=== PATIENT | male | born 1955 | race Caucasian/White ===

== ENCOUNTER 2019-03-20 06:32 | Inpatient (IN) | payer BC ==
[~2019-03-20] VITALS: Ht 183 cm; Wt 96.2 kg
[2019-03-20] VITALS (15 sets, daily range): BP systolic 103–185; BP diastolic 64–124
--- NOTE | ~2019-03-20 | EKG ---
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
--- NOTE | ~2019-03-20 | PR ---
[place], [place] PROGRESS NOTE NAME: LORRAINECAL Root UNIT #: [id number] ROOM: 402 DOCTOR: MARY ANN ACOSTA MD BIRTHDATE: [birth year] DOS: 03/23/2019 SUBJECTIVE: The patient had seen for Dr. Odom 3 days ago. The patient admitted with rapid atrial fibrillation. The patient went back into sinus rhythm, now he is reverted back to atrial fibrillation. He was started on amiodarone, which was discontinued by Dr. Odom. The patient is still on the Cardizem drip at 10 mcg at this point. Echocardiogram official report is still pending, but initial report shows EF is about 20-25%, history of alcohol abuse. He denies any chest discomfort, not in congestive heart failure. REVIEW OF SYSTEMS: A 6-8 systems reviewed. The patient denies any chest discomfort, no shortness of breath right now at rest. No palpitations. No GI or issues. Neurologically stable. PHYSICAL EXAMINATION: GENERAL: He is alert, oriented x 3. HEENT: Unremarkable. NECK: Supple, no JVD. LUNGS: Diminished breath sounds. HEART: Sounds are irregularly irregular. ABDOMEN: Soft, nontender. EXTREMITIES: Intact pulses. LABORATORY DATA: Sodium 141, potassium 4, creatinine is 1.02. Hemoglobin ____, hematocrit within normal limits. IMPRESSION AND PLAN: The patient with new onset atrial fibrillation, cardiomyopathy, hypertension, alcohol abuse, and nicotine dependence. RECOMMENDATION: Continue the present medications as ordered. The patient is already on anticoagulation. Because of the LV dysfunction and persistent AFib, the patient has been digitalized. I will review the digoxin level. If he continues to be in atrial fibrillation, we need to do either a stress test or a heart catheterization followed by CARIDAD cardioversion if he does not convert into sinus rhythm and we will follow up. [place], [place] PROGRESS NOTE NAME: CAL PETERS UNIT #: [id number] ROOM: 402 DOCTOR: MARY ANN ACOSTA MD BIRTHDATE: [birth year] MARY ANN ACOSTA MD CM:PNTRANS [id number] MARY ANN ACOSTA MD 03/23/19 0054 interface
--- NOTE | ~2019-03-20 | EKG ---
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
--- NOTE | ~2019-03-20 | EKG ---
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
--- NOTE | ~2019-03-20 | EKG ---
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
--- NOTE | ~2019-03-20 | EKG ---
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
--- NOTE | ~2019-03-20 | CON ---
[place], [place] REPORT OF CONSULTATION NAME: CAL PETERS [facility] #: [id number] UNIT #: [id number] ROOM: 402 DOCTOR: JONATHAN ACOSTA MDHISH BIRTHDATE: [birth year] DOS: 03/20/2019 I am covering for Dr. Odom. 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 The patient was recently admitted to [facility] for suspected pneumonia and the patient was discharged with lisinopril. The patient was severely hypertensive, was also started on doxycycline. The patient came in with palpitations, was found to be in rapid atrial fibrillation of 150 and we were consulted. When I saw him, he was not having any chest pain, but heart rate is like 140s-150s with atrial fibrillation, on 15 mg of Cardizem. The patient is somewhat a poor historian, has never seen anybody in the past. He does not go to the doctors. PAST MEDICAL HISTORY: Recently diagnosed hypertension. PAST SURGICAL HISTORY: Arthroscopy surgery to the knee. PAST SOCIAL HISTORY: Alcohol abuse, 8 shots of liquor per day since age 25. Does not use any drugs. Nicotine dependence with current use 1 pack per. FAMILY HISTORY: Not remarkable. ALLERGIES: None. HOME MEDICATIONS: Lisinopril 20 mg. REVIEW OF SYSTEMS: CONSTITUTIONAL: No fever, no chills. HEENT: No visual disturbance or hearing problems. CARDIOVASCULAR SYSTEM: As per HPI. Complains of palpitation. RESPIRATORY SYSTEM: Complains of shortness of breath. GASTROINTESTINAL: Reports diarrhea, denies abdominal pain now, complains of distention. PSYCHIATRIC: Reports substance abuse, 8 shots of alcohol per day. PHYSICAL EXAMINATION: VITAL SIGNS: He is in atrial fibrillation, rate is about 120s-140s, on 15 mg of Cardizem IV, blood pressure is 106/90. HEENT: Unremarkable. NECK: Supple, no JVD. LUNGS: Diminished breath sounds. HEART: Sounds are irregularly irregular. ABDOMEN: Soft, positive bowel sounds. EXTREMITIES: Intact pulses. LABORATORY DATA: Electrolytes are normal. Creatinine is 1.2. Liver functions are normal. Troponin is negative. TSH is normal. Hemoglobin and hematocrit within normal limits. EKG shows atrial fibrillation with rapid ventricular response. Chest x-ray showed mild vascular congestion. Echocardiogram [place], [place] REPORT OF CONSULTATION [facility] [id number] UNIT #: [id number] ROOM: 402 DOCTOR: MARY ANN ACOSTA MD BIRTHDATE: [birth year] preliminary showed an EF of about 25-30%. Dr. Odom supposed to read. IMPRESSION: Rapid atrial fibrillation, probable nonischemic cardiomyopathy, hypertension, probable, most of it is related to alcohol abuse, hyperlipidemia. RECOMMENDATIONS: Agree with anticoagulation. Dr. Odom has started Xarelto. Toprol-XL has been started, but the patient's heart rate still continues to be significantly elevated. We will start the patient on amiodarone drip. Discussed with Dr. Odom in detail about the patient. MARY ANN ACOSTA MD CM:CONSTR:REPORT OF CONSULTATION 1533 03/21/19 0137 interface
[2019-03-20] MEDS ORDERED: LISINOPRIL5 MG PO (06:46)
[2019-03-20 07:07] LABS: BASO % 0.5 % (0.0-1.0); EOS # 0.1 10*3/uL (0.0-0.4); EOS % 1.8 % (1.0-4.0); HEMATOCRIT 45.3 % (42.0-52.0); HEMOGLOBIN 15.2 g/dl (14.0-18.0); LYMPH % 25.3 % (27.0-41.0); MEAN CELL VOLUME 98.3 fl (80.0-94.0); MEAN CORPUSCULAR HGB CONC 33.6 g/dl (33.0-37.0); MEAN PLATELET VOLUME 11.3 fl (9.6-12.3); MONO # 0.6 10*3/uL (0.1-1.0); NEUT # 4.9 10*3/uL (2.3-7.9); PLATELET COUNT AUTOMATED 222 10*3/uL (130-400); RED BLOOD COUNT 4.61 10*6/uL (4.50-5.90); RED CELL DISTRI WIDTH 12.9 % (0-14.5); WHITE BLOOD COUNT 7.7 10*3/uL (4.8-10.8)
[2019-03-20 07:17] LABS: ALBUMIN 3.9 gm/dl (3.1-4.5); BUN 14 mg/dl (7-24); CHLORIDE 110 mmol/L (98-107); CREATININE 1.24 mg/dL (0.70-1.30); POTASSIUM 3.9 mmol/L (3.5-5.1); SGOT/AST 44 IU/L (3-35); SGPT/ALT 65 U/L (12-78); SODIUM 141 mmol/L (136-145)
[2019-03-20 07:18] LABS: ACT PARTIAL THROMBO TIME 25.5 SECONDS (20.0-32.1)
[2019-03-20 07:34] LABS: ALKALINE PHOSPHATASE 83 U/L (45-117); TOTAL PROTEIN 7.1 gm/dL (6.4-8.2)
[2019-03-20 07:38] LABS: TROPONIN I < 0.015 ng/ml (<0.045)
[2019-03-20 08:50] LABS: FREE T4 1.15 ng/dl (0.76-1.46); THYROID STIM HORMONE (HS) 2.32 uIU/ml (0.358-4.75)
[2019-03-21] VITALS: BP 119/87
[2019-03-21 06:17] LABS: BASO % 0.3 % (0.0-1.0); EOS # 0.1 10*3/uL (0.0-0.4); EOS % 0.6 % (1.0-4.0); HEMATOCRIT 44.4 % (42.0-52.0); HEMOGLOBIN 14.5 g/dl (14.0-18.0); LYMPH # 1.4 10*3/uL (1.3-4.4); LYMPH % 14.5 % (27.0-41.0); MEAN CORPUSCULAR HGB 32.7 pg (27.0-31.0); MEAN CORPUSCULAR HGB CONC 32.7 g/dl (33.0-37.0); MEAN PLATELET VOLUME 11.8 fl (9.6-12.3); MONO # 0.8 10*3/uL (0.1-1.0); MONO % 7.7 % (3.0-9.0); NEUT # 7.5 10*3/uL (2.3-7.9); NEUT % 76.5 % (47.0-73.0); PLATELET COUNT AUTOMATED 209 10*3/uL (130-400); RED BLOOD COUNT 4.44 10*6/uL (4.50-5.90); WHITE BLOOD COUNT 9.8 10*3/uL (4.8-10.8)
[2019-03-21 06:39] LABS: ACT PARTIAL THROMBO TIME 34.5 SECONDS (20.0-32.1); INTERNATIONAL NORM RATIO 1.2 (2.0-3.5)
[2019-03-21 06:40] LABS: ALBUMIN 3.8 gm/dl (3.1-4.5); BUN 15 mg/dl (7-24); CHLORIDE 106 mmol/L (98-107); CREATININE 1.15 mg/dL (0.70-1.30); POTASSIUM 4.5 mmol/L (3.5-5.1); SGOT/AST 28 IU/L (3-35); SGPT/ALT 52 U/L (12-78); SODIUM 137 mmol/L (136-145)
[2019-03-21 06:43] LABS: ALKALINE PHOSPHATASE 81 U/L (45-117); CHOLESTEROL 181 mg/dL (<200); HDL CHOLESTEROL 51 mg/dl (40-60); LDL CHOLESTEROL 109 mg/dL (9-159); PHOSPHOROUS 3.2 mg/dL (2.5-4.9); TRIGLYCERIDES 106 mg/dl (<150); VLDL CHOLESTEROL 21 mg/dL (6-40)
[2019-03-21 08:00] VITALS: BP 152/96
[2019-03-21 09:17] LABS: VITAMIN D, 25-HYDROXY 24.9 ng/mL (30-100)
[2019-03-21 11:39] VITALS: BP 148/102
[2019-03-21 11:40] VITALS: BP 148/102
[2019-03-21 15:55] VITALS: BP 134/93
[2019-03-21 20:00] VITALS: BP 139/89
[2019-03-22] VITALS (15 sets, daily range): BP systolic 102–131; BP diastolic 60–81
[2019-03-22 06:06] LABS: BUN 14 mg/dl (7-24); CHLORIDE 107 mmol/L (98-107); CREATININE 1.03 mg/dL (0.70-1.30); SODIUM 139 mmol/L (136-145)
[2019-03-22 06:15] LABS: BASO % 0.4 % (0.0-1.0); EOS # 0.1 10*3/uL (0.0-0.4); EOS % 1.2 % (1.0-4.0); HEMATOCRIT 41.1 % (42.0-52.0); HEMOGLOBIN 13.6 g/dl (14.0-18.0); LYMPH # 1.6 10*3/uL (1.3-4.4); LYMPH % 18.3 % (27.0-41.0); MEAN CELL VOLUME 98.3 fl (80.0-94.0); MEAN CORPUSCULAR HGB 32.5 pg (27.0-31.0); MEAN CORPUSCULAR HGB CONC 33.1 g/dl (33.0-37.0); MEAN PLATELET VOLUME 11.7 fl (9.6-12.3); MONO # 0.8 10*3/uL (0.1-1.0); MONO % 9.9 % (3.0-9.0); NEUT # 5.9 10*3/uL (2.3-7.9); PLATELET COUNT AUTOMATED 208 10*3/uL (130-400); RED BLOOD COUNT 4.18 10*6/uL (4.50-5.90); RED CELL DISTRI WIDTH 12.9 % (0-14.5); WHITE BLOOD COUNT 8.5 10*3/uL (4.8-10.8)
[2019-03-23] VITALS (12 sets, daily range): BP systolic 104–162; BP diastolic 50–100
[2019-03-23 06:15] LABS: BASO % 0.4 % (0.0-1.0); EOS # 0.1 10*3/uL (0.0-0.4); EOS % 1.4 % (1.0-4.0); HEMATOCRIT 41.4 % (42.0-52.0); HEMOGLOBIN 13.7 g/dl (14.0-18.0); LYMPH # 1.7 10*3/uL (1.3-4.4); LYMPH % 20.3 % (27.0-41.0); MEAN CELL VOLUME 97.9 fl (80.0-94.0); MEAN CORPUSCULAR HGB 32.4 pg (27.0-31.0); MEAN CORPUSCULAR HGB CONC 33.1 g/dl (33.0-37.0); MEAN PLATELET VOLUME 11.6 fl (9.6-12.3); MONO # 0.9 10*3/uL (0.1-1.0); MONO % 10.9 % (3.0-9.0); NEUT # 5.6 10*3/uL (2.3-7.9); NEUT % 66.9 % (47.0-73.0); PLATELET COUNT AUTOMATED 192 10*3/uL (130-400); RED BLOOD COUNT 4.23 10*6/uL (4.50-5.90); RED CELL DISTRI WIDTH 12.9 % (0-14.5); WHITE BLOOD COUNT 8.4 10*3/uL (4.8-10.8)
[2019-03-23 06:36] LABS: BUN 15 mg/dl (7-24); CHLORIDE 108 mmol/L (98-107); CREATININE 1.02 mg/dL (0.70-1.30); SODIUM 141 mmol/L (136-145)
[2019-03-24] VITALS (13 sets, daily range): BP systolic 108–132; BP diastolic 60–82
[2019-03-24] MEDS ORDERED: METOPROLOL SUC100 M1 PO (16:20)
[2019-03-24] MEDS ORDERED: Lanoxin PO (16:20)
[2019-03-24] MEDS ORDERED: XARE20MG PO (16:20)
[2019-03-25] VITALS: BP 135/70
[2019-03-25 02:00] VITALS: BP 110/58
[2019-03-25 04:00] VITALS: BP 104/75
== END 2019-03-25 05:45 | disposition short-term general hospital (02) | DRG 309 ==
LOC: ED 06:32 → EDHOLD 07:04 → 4E 07:04
PROVIDERS: Emergency Medicine; Internal Medicine; Student in an Organized Health Care Education/Training Program; ADMIT Internal Medicine
DX: I48.1 Persistent atrial fibrillation (principal); I16.1 Hypertensive emergency; I50.22 Chronic systolic (congestive) heart failure; I42.9 Cardiomyopathy, unspecified; E87.8 Other disorders of electrolyte and fluid balance, not elsewhere classified; F10.10 Alcohol abuse, uncomplicated; R74.0 Nonspecific elevation of levels of transaminase and lactic acid dehydrogenase [LDH]; F17.210 Nicotine dependence, cigarettes, uncomplicated; E78.5 Hyperlipidemia, unspecified; I11.0 Hypertensive heart disease with heart failure; E66.3 Overweight; R73.9 Hyperglycemia, unspecified; E83.41 Hypermagnesemia; Z82.3 Family history of stroke; Z80.8 Family history of malignant neoplasm of other organs or systems; Z79.899 Other long term (current) drug therapy; Z71.6 Tobacco abuse counseling; Z87.01 Personal history of pneumonia (recurrent); Z68.28 Body mass index [BMI] 28.0-28.9, adult

== ENCOUNTER 2019-04-22 21:19 | Inpatient (IN) | payer BC ==
[2019-04-22] VITALS (7 sets, daily range): BP systolic 165–215; BP diastolic 81–99
[~2019-04-22] VITALS: Ht 182.8 cm; Wt 92.5 kg
--- NOTE | ~2019-04-22 | CON ---
[place], [place] REPORT OF CONSULTATION NAME: CAL PETERS [facility] #: [id number] UNIT #: [id number] ROOM: 407 DOCTOR: FINA BRADY MD BIRTHDATE: [birth year] DOS: 04/23/2019 HISTORY OF PRESENT ILLNESS: This is a 63-year-old -[place] man who presented to this hospital with heart failure and atrial fibrillation with rapid ventricular rate and he was taken to [facility] where he had a diagnostic heart cath and coronary arteries were fine. His LV systolic function was severely depressed. He also had atrial fibrillation. A transesophageal echocardiogram followed by electrical cardioversion and he did not revert to normal sinus rhythm. At that time, he was started on amiodarone just to prime the heart for future electrical cardioversion. He has longstanding hypertension that had remained uncontrolled and he has severe cardiomyopathy due to hypertension and tachycardia. He has had some degree of obesity and had right knee surgery in the remote past. I saw him in my office a couple of weeks ago and at that time, his systolic blood pressure was around 140. It had been so until the last couple of days when this began to creep up despite being very compliant with his medications. So, blood pressure was over 200 and he came into the Emergency Department and was admitted for evaluation and further treatment of hypertension. He does not smoke, nor does he drink alcoholic beverages. Mother had coronary artery disease and at age 92. HOME MEDICATIONS: Include amiodarone 200 mg daily, digoxin 250 mcg daily and this was given to control ventricular rate, lisinopril 10 mg b.i.d., metoprolol succinate 25 mg b.i.d. and rivaroxaban 20 mg daily. PHYSICAL EXAMINATION: GENERAL: This reveals a patient who is very pleasant, alert, very comfortable. His complexion is fine. He is not jaundiced, not cyanotic and there is no thyromegaly or finger clubbing. VITAL SIGNS: Pulse is 52 and regular, blood pressure 147/67, highest blood pressure was 215/99. NECK: JVP is normal. AJR is negative. No bruit in the neck. HEART: There is no cardiomegaly, no murmurs are present. EXTREMITIES: He has good pedal pulses and no edema in lower extremities. RESPIRATORY: Lungs are clear to percussion and auscultation with good breath sounds. ABDOMEN: Supple. No pulsatile mass. DIAGNOSTIC STUDIES: An ECG showed normal sinus rhythm at 56 beats per minute with mild ST segment depression in lateral chest leads and in lead 2. Chest x-ray was unremarkable. LABORATORY DATA: Potassium 3.6, BUN 10, creatinine 0.96. Troponin I level was normal. IMPRESSION: 1. Uncontrolled hypertension. Blood pressure seemed to have creeped up in a couple of days prior to this admission and you have rightly increased his [place], [place] REPORT OF CONSULTATION NAME: CAL PETERS UNIT #: [id number] ROOM: 407 DOCTOR: FINA BRADY MD BIRTHDATE: [birth year] lisinopril to 20 mg b.i.d. Beta valentín cannot be increased because his heart rate is on the low side already. 2. Severe dilated cardiomyopathy due to tachycardia and uncontrolled hypertension. This is well compensated, i.e., there is no evidence of cardiac decompensation and I am planning to repeat an echocardiogram in the next couple of months. 3. Persistent atrial fibrillation has reverted to normal sinus rhythm with amiodarone. RECOMMENDATIONS: 1. I agree with increasing lisinopril to 20 mg b.i.d., beta valentín dose should be maintained at current level, i.e., metoprolol succinate 25 mg b.i.d. 2. Discontinue digoxin altogether. 3. Continue with amiodarone 200 mg once a day. 4. Now that the blood pressure is coming down nicely, it would be safe to discharge this patient home and I would see him in my office in the next 2-3 weeks. I thank you for this consult. FINA BRADY MD CM:CONSTR:REPORT OF CONSULTATION 1121 04/24/19 0309 interface
--- NOTE | ~2019-04-22 | EKG ---
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
[~2019-04-22 21:19] MED LIST: LISINOPRIL5 MG PO; Lanoxin PO; METOPROLOL SUC100 M1 PO; XARE20MG PO
[2019-04-22 22:13] LABS: BASO # 0.1 10*3/uL (0.0-0.1); BASO % 0.9 % (0.0-1.0); EOS # 0.2 10*3/uL (0.0-0.4); EOS % 2.9 % (1.0-4.0); HEMATOCRIT 41.8 % (42.0-52.0); HEMOGLOBIN 14.1 g/dl (14.0-18.0); LYMPH # 1.7 10*3/uL (1.3-4.4); LYMPH % 31.4 % (27.0-41.0); MEAN CELL VOLUME 94.6 fl (80.0-94.0); MEAN CORPUSCULAR HGB 31.9 pg (27.0-31.0); MEAN CORPUSCULAR HGB CONC 33.7 g/dl (33.0-37.0); MEAN PLATELET VOLUME 10.8 fl (9.6-12.3); MONO # 0.5 10*3/uL (0.1-1.0); MONO % 9.2 % (3.0-9.0); NEUT % 55.2 % (47.0-73.0); PLATELET COUNT AUTOMATED 201 10*3/uL (130-400); RED BLOOD COUNT 4.42 10*6/uL (4.50-5.90); RED CELL DISTRI WIDTH 12.3 % (0-14.5); WHITE BLOOD COUNT 5.5 10*3/uL (4.8-10.8)
[2019-04-22 22:49] LABS: ALBUMIN 3.5 gm/dl (3.1-4.5); ALKALINE PHOSPHATASE 76 U/L (45-117); BUN 12 mg/dl (7-24); CHLORIDE 106 mmol/L (98-107); CREATININE 1.11 mg/dL (0.70-1.30); SGOT/AST 23 IU/L (3-35); SGPT/ALT 39 U/L (12-78); SODIUM 141 mmol/L (136-145); TOTAL PROTEIN 6.6 gm/dL (6.4-8.2); TROPONIN I < 0.015 ng/ml (<0.045)
[2019-04-23] VITALS (10 sets, daily range): BP systolic 147–177; BP diastolic 67–92
[2019-04-23] MEDS ORDERED: DIGOXIN250 MCG PO (02:01)
[2019-04-23] MEDS ORDERED: METOPROLOL SUCC25 M2 PO (02:02)
[2019-04-23] MEDS ORDERED: LISINOPRIL10 M1 PO (02:02)
[2019-04-23] MEDS ORDERED: XARELTO20 M1 PO (02:03)
[2019-04-23] MEDS ORDERED: AMIODARONE HYD200 MG PO (02:04)
[2019-04-23 04:05] LABS: BILIRUBIN NEGATIVE (NEGATIVE); BLOOD NEGATIVE (NEGATIVE); CLARITY CLEAR (CLEAR); COLOR YELLOW (YELLOW); GLUCOSE NEGATIVE (NEGATIVE); KETONE NEGATIVE (NEGATIVE); LEUKO ESTERASE NEGATIVE (NEGATIVE); NITRITE NEGATIVE (NEGATIVE); UROBILINOGEN 0.2 E.U./dl (0.2-1.0)
[2019-04-23 04:10] LABS: BACTERIA TRACE; EPITHELIAL CELLS 0-2; RBC 0-2 rbc/hpf (0-2); WBC 0-2 wbc/hpf (0-5)
[2019-04-23 06:37] LABS: BASO % 0.6 % (0.0-1.0); EOS # 0.2 10*3/uL (0.0-0.4); HEMATOCRIT 42.5 % (42.0-52.0); HEMOGLOBIN 14.2 g/dl (14.0-18.0); LYMPH # 1.9 10*3/uL (1.3-4.4); LYMPH % 28.4 % (27.0-41.0); MEAN CELL VOLUME 94.7 fl (80.0-94.0); MEAN CORPUSCULAR HGB 31.6 pg (27.0-31.0); MEAN CORPUSCULAR HGB CONC 33.4 g/dl (33.0-37.0); MEAN PLATELET VOLUME 11.4 fl (9.6-12.3); MONO # 0.6 10*3/uL (0.1-1.0); MONO % 8.9 % (3.0-9.0); PLATELET COUNT AUTOMATED 186 10*3/uL (130-400); RED BLOOD COUNT 4.49 10*6/uL (4.50-5.90); RED CELL DISTRI WIDTH 12.4 % (0-14.5); WHITE BLOOD COUNT 6.8 10*3/uL (4.8-10.8)
[2019-04-23 07:06] LABS: BUN 10 mg/dl (7-24); CHLORIDE 110 mmol/L (98-107); CREATININE 0.96 mg/dL (0.70-1.30); POTASSIUM 3.6 mmol/L (3.5-5.1); SODIUM 144 mmol/L (136-145)
[2019-04-23 07:13] LABS: FREE T4 1.01 ng/dl (0.76-1.46)
[2019-04-24] VITALS: BP 158/79
[2019-04-24 06:21] LABS: BASO # 0.1 10*3/uL (0.0-0.1); BASO % 0.9 % (0.0-1.0); EOS # 0.2 10*3/uL (0.0-0.4); EOS % 2.7 % (1.0-4.0); HEMATOCRIT 44.1 % (42.0-52.0); HEMOGLOBIN 14.8 g/dl (14.0-18.0); LYMPH # 1.4 10*3/uL (1.3-4.4); LYMPH % 25.4 % (27.0-41.0); MEAN CELL VOLUME 94.2 fl (80.0-94.0); MEAN CORPUSCULAR HGB 31.6 pg (27.0-31.0); MEAN CORPUSCULAR HGB CONC 33.6 g/dl (33.0-37.0); MEAN PLATELET VOLUME 11.3 fl (9.6-12.3); MONO # 0.5 10*3/uL (0.1-1.0); MONO % 9.4 % (3.0-9.0); NEUT # 3.4 10*3/uL (2.3-7.9); NEUT % 61.2 % (47.0-73.0); PLATELET COUNT AUTOMATED 206 10*3/uL (130-400); RED BLOOD COUNT 4.68 10*6/uL (4.50-5.90); RED CELL DISTRI WIDTH 12.4 % (0-14.5); WHITE BLOOD COUNT 5.5 10*3/uL (4.8-10.8)
[2019-04-24 06:35] LABS: BUN 10 mg/dl (7-24); CHLORIDE 108 mmol/L (98-107); CREATININE 1.08 mg/dL (0.70-1.30); PHOSPHOROUS 3.3 mg/dL (2.5-4.9); POTASSIUM 4.1 mmol/L (3.5-5.1); SODIUM 142 mmol/L (136-145)
[2019-04-24 08:00] VITALS: BP 150/90; BP 157/100
[2019-04-24] MEDS ORDERED: HYDR12.5C PO (10:43)
[2019-04-24] MEDS ORDERED: LISINOPRIL20 MG PO (10:43)
== END 2019-04-24 11:05 | disposition home or self-care (01) | DRG 305 ==
LOC: ED 21:19 → EDHOLD 04-23 00:24 → 4E 04-23 00:24
PROVIDERS: Emergency Medicine Emergency Medical Services; Family Medicine; Student in an Organized Health Care Education/Training Program; ADMIT Internal Medicine
DX: I16.0 Hypertensive urgency (principal); I50.22 Chronic systolic (congestive) heart failure; I42.0 Dilated cardiomyopathy; I11.0 Hypertensive heart disease with heart failure; R00.1 Bradycardia, unspecified; R73.9 Hyperglycemia, unspecified; F17.210 Nicotine dependence, cigarettes, uncomplicated; E87.8 Other disorders of electrolyte and fluid balance, not elsewhere classified; I48.0 Paroxysmal atrial fibrillation; Z87.01 Personal history of pneumonia (recurrent); Z82.3 Family history of stroke; Z80.8 Family history of malignant neoplasm of other organs or systems; Z79.899 Other long term (current) drug therapy; Z79.01 Long term (current) use of anticoagulants

== ENCOUNTER → 2019-05-13 | Outpatient (CLI) | payer BC ==
[~2019-05-13] MED LIST changes: +AMIODARONE HYD200 MG PO; +DIGOXIN250 MCG PO; +HYDR12.5C PO; +LISINOPRIL10 M1 PO; +LISINOPRIL20 MG PO; +METOPROLOL SUCC25 M2 PO; +XARELTO20 M1 PO
== END | disposition home or self-care (01) ==
LOC: RESCLI 00:34
DX: I48.0 Paroxysmal atrial fibrillation (principal); I11.0 Hypertensive heart disease with heart failure; I50.42 Chronic combined systolic (congestive) and diastolic (congestive) heart failure; F41.9 Anxiety disorder, unspecified; G89.29 Other chronic pain; M17.11 Unilateral primary osteoarthritis, right knee; Z79.899 Other long term (current) drug therapy

== ENCOUNTER → 2019-06-17 | Outpatient (CLI) | payer BC | END | disposition home or self-care (01) | LOC: RESCLI 01:28 | DX: I48.0 Paroxysmal atrial fibrillation (principal); I11.0 Hypertensive heart disease with heart failure; I50.42 Chronic combined systolic (congestive) and diastolic (congestive) heart failure; F41.9 Anxiety disorder, unspecified; G89.29 Other chronic pain; M25.561 Pain in right knee; M17.11 Unilateral primary osteoarthritis, right knee; E78.5 Hyperlipidemia, unspecified; Z79.899 Other long term (current) drug therapy; Z88.8 Allergy status to other drugs, medicaments and biological substances; Z87.891 Personal history of nicotine dependence ==

== ENCOUNTER → 2019-09-10 | Outpatient (CLI) | payer BC | END | disposition home or self-care (01) | LOC: RESCLI 01:17 | DX: Z13.31 Encounter for screening for depression (principal); Z13.39 Encounter for screening examination for other mental health and behavioral disorders; I48.0 Paroxysmal atrial fibrillation; I11.0 Hypertensive heart disease with heart failure; I50.9 Heart failure, unspecified; G89.29 Other chronic pain; M25.561 Pain in right knee; M17.11 Unilateral primary osteoarthritis, right knee; E78.5 Hyperlipidemia, unspecified; Z79.899 Other long term (current) drug therapy; Z87.891 Personal history of nicotine dependence ==

== ENCOUNTER → 2019-10-02 | Outpatient (CLI) | payer BC | END | disposition home or self-care (01) | LOC: RESCLI 01:00 | DX: I48.0 Paroxysmal atrial fibrillation (principal); I11.0 Hypertensive heart disease with heart failure; I50.42 Chronic combined systolic (congestive) and diastolic (congestive) heart failure; F41.9 Anxiety disorder, unspecified; G89.29 Other chronic pain; M25.561 Pain in right knee; M17.11 Unilateral primary osteoarthritis, right knee; E78.5 Hyperlipidemia, unspecified; I48.91 Unspecified atrial fibrillation ==

== ENCOUNTER 2021-04-01 12:27 | Emergency (ER) | payer MEDICARE ==
[~2021-04-01] VITALS: Ht 182.8 cm; Wt 104.3 kg
[2021-04-01] MEDS ORDERED: CARVEDILOL12.5 MG PO (12:51)
[2021-04-01] MEDS ORDERED: VALSARTAN80 MG PO (12:52)
[2021-04-01 13:21] LABS: HEMATOCRIT 44.7 % (42.0-52.0); MEAN CELL VOLUME 88.5 fl (80.0-94.0); MEAN CORPUSCULAR HGB 29.7 pg (27.0-31.0); MEAN CORPUSCULAR HGB CONC 33.6 g/dl (33.0-37.0); MEAN PLATELET VOLUME 9.6 fl (9.6-12.3); PLATELET COUNT AUTOMATED 209 10*3/uL (130-400); RED BLOOD COUNT 5.05 10*6/uL (4.50-5.90); RED CELL DISTRI WIDTH 13.7 % (0-14.5); WHITE BLOOD COUNT 10.9 10*3/uL (4.8-10.8)
[2021-04-01 13:37] LABS: PLATELET SUFFICIENCY NORMAL (NORMAL); TOTAL CELLS COUNTED 100 #CELLS
== END 2021-04-01 14:24 | disposition home or self-care (01) ==
LOC: ED 12:27
PROVIDERS: Family Medicine
DX: L23.7 Allergic contact dermatitis due to plants, except food (principal); I48.91 Unspecified atrial fibrillation; Z79.899 Other long term (current) drug therapy; Z98.890 Other specified postprocedural states; Z87.891 Personal history of nicotine dependence